=== PATIENT | male | born 1980 | race Caucasian/White ===

== ENCOUNTER 2016-03-23 11:17 | Emergency (ER) | payer MEDICARE, MEDICAID ==
[2016-03-23 12:00] LABS: Hematocrit 45 % (42-52); Hemoglobin 14.8 g/dl (14.0-18.0); Mean Corpuscular HGB Conc 33 g/dl (31-36); Mean Corpuscular Hemoglobin 28 pg (27-31); Mean Corpuscular Volume 84 fL (80-94); Mean Platelet Volume 8 um3 (7.4-10.4); Red Blood Count 5.34 10^6/ul (4.0-5.4); Red Cell Distribution Width 13 % (10.5-15); White Blood Count 7.4 10^3/ul (3.5-10.8)
[2016-03-23 12:02] LABS: Urine Bilirubin Negative (Negative); Urine Glucose 3+(>=500 mg/dL) (Negative); Urine Nitrite Negative (Negative)
[2016-03-23 12:11] LABS: Benzodiazepine Urine Screen None Detected (None Detect)
[2016-03-23 12:12] LABS: ALT 13 U/L (7-52); AST 17 U/L (13-39); Albumin 4.5 g/dL (3.2-5.2); Alkaline Phosphatase 66 U/L (34-104); Anion Gap 6 mmol/L (2-11); BUN/Creatinine Ratio 14.8 (8-20); Blood Urea Nitrogen 13 mg/dL (6-24); CO2 Carbon Dioxide 29 mmol/L (22-32); Calcium 9.8 mg/dL (8.6-10.3); Chloride 98 mmol/L (101-111); Globulin 2.7 g/dL (2-4); Glucose 246 mg/dL (70-100); Sodium 133 mmol/L (133-145); Total Protein 7.2 g/dL (6.4-8.9)
--- NOTE | 2016-03-23 12:19 | ED ---
Psychiatric Complaint - HPI Summary HPI Summary: Patient presents with depression that has been worsening over the past 3 weeks. He feels he is becoming less and less able to cope with his depression and today while driving he found himself thinking about running his car off the road. Instead, he came to the ED for evaluation because it helped in the past. He has been non-compliant with his medications and is not even sure if they are helping, or the "right medications". He has a counselor he does not feel is helping him either. He is not shower, eating or sleeping well. - History Of Current Complaint Chief Complaint: EDMentalHealth Time Seen by Provider: 03/23/16 11:36 Hx Obtained From: Patient Onset/Duration: Gradual Onset Timing: Constant Severity Initially: Mild Severity Currently: Severe Character: Depressed Aggravating Factor(s): Medication Non-compliance Alleviating Factor(s): Nothing Associated Signs And Symptoms: Positive: Sleep Disturbance, Appetite Change Related History: Positive For: Prior Psychiatric Issues Has Suicidal: Reports: Thoughts - Allergies/Home Medications Allergies/Adverse Reactions: Allergies Allergy/AdvReac Type Severity Reaction Status Date / Time No Known Allergies Allergy Verified 03/23/16 11:25 Home Medications: Home Medications Insulin ASPART (NF) [Novolog (NF)] 0 - 100 units SUBCUT DAILY 03/23/16 [History Confirmed 03/23/16] Omeprazole CAP* [Prilosec CAP* 20 MG] 40 mg PO DAILY 03/23/16 [History Confirmed 03/23/16] Simvastatin (NF) [Zocor (NF)] 40 mg PO DAILY 03/23/16 [History Confirmed ] hydrOXYzine HCL TAB* [Atarax TAB*] 50 mg PO BID PRN 03/23/16 [History Confirmed 03/23/16] PMH/Surg Hx/FS Hx/Imm Hx Endocrine/Hematology History: Reports: Hx Diabetes - Type I Denies: Hx Anticoagulant Therapy, Hx Thyroid Disease Cardiovascular History: Reports: Hx Hypercholesterolemia Denies: Hx Congestive Heart Failure, Hx Deep Vein Thrombosis, Hx Hypertension , Hx Myocardial Infarction, Hx Pacemaker/ICD Respiratory History: Denies: Hx Asthma, Hx Chronic Obstructive Pulmonary Disease (COPD), Hx Lung Cancer, Hx Pneumonia, Hx Pulmonary Embolism GI History: Denies: Hx Gall Bladder Disease, Hx Gastrointestinal Bleed, Hx Ulcer, Hx Urosepsis History: Denies: Hx Kidney Stones, Hx Renal Disease Sensory History: Denies: Hx Contacts or Glasses Opthamlomology History: Denies: Hx Contacts or Glasses Neurological History: Denies: Hx Dementia, Hx Migraine, Hx Seizures, Hx Transient Ischemic Attacks (TIA) Psychiatric History: Reports: Hx Anxiety, Hx Depression, Hx Bipolar Disorder Denies: Hx Eating Disorder, Hx Schizophrenia, Hx of Violent Episodes Against Others Infectious Disease History: No Infectious Disease History: Denies: Hx Hepatitis, Hx Human Immunodeficiency Virus (HIV), Traveled Outside the [place] in Last 30 Days - Family History Known Family History: Positive: Unknown, Diabetes - Social History Occupation: Employed Full-time Lives: Alone Alcohol Use: None 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 Substance Use Type: Reports: Excessive Caffeine Smoking Status (MU): Heavy Every Day Tobacco Smoker Type: Cigarettes Amount Used/How Often: 1 ppd Length of Time of Smoking/Using Tobacco: 17 years Cessation Counseling: Patient Advised to Stop Review of Systems Positive: Depressed All Other Systems Reviewed And Are Negative: Yes Physical Exam Triage Information Reviewed: Yes Vital Signs On Initial Exam: Initial Vitals Temp Pulse Resp BP Pulse Ox 98.1 F 93 18 117/72 99 03/23/16 11:25 03/23/16 11:25 03/23/16 11:25 03/23/16 11:25 03/23/16 11:25 Vital Signs Reviewed: Yes Appearance: Positive: Well-Appearing - unkempt, No Pain Distress, Well-Nourished Skin: Positive: Warm, Skin Color Reflects Adequate Perfusion, Dry, Soft Head/Face: Positive: Normal Head/Face Inspection Eyes: Positive: EOMI, ROBBY, Conjunctiva Clear ENT: Positive: Hearing grossly normal Neck: Positive: Supple, Nontender, No Lymphadenopathy Respiratory/Lung Sounds: Positive: Clear to Auscultation, Breath Sounds Present Cardiovascular: Positive: RRR Abdomen Description: Positive: Nontender, Soft Bowel Sounds: Positive: Present Musculoskeletal: Positive: Strength/ROM Intact. Negative: Edema Left, Edema Right Neurological: Positive: Sensory/Motor Intact, Alert, Oriented to Person Place, Time, [place] Bundle Intact Distally, Normal Gait Psychiatric: Positive: Depressed - flat affect, but pleasant and cooperative AVPU Assessment: Alert - [place] Coma Scale Coma Scale Total: 15 Diagnostics - Vital Signs Vital Signs Temp Pulse Resp BP Pulse Ox 03/23/16 11:25 98.1 F 93 18 117/72 99 - Laboratory Lab Results: Lab Results 03/23/16 03/23/16 03/23/16 Range/Units 11:45 11:45 11:45 WBC 7.4 (3.5-10.8) 10^3/ul RBC 5.34 (4.0-5.4) 10^6/ul Hgb 14.8 (14.0-18.0) g/dl Hct 45 (42-52) % MCV 84 (80-94) fL MCH 28 (27-31) pg MCHC 33 (31-36) g/dl RDW 13 (10.5-15) % Plt Count 234 (150-450) 10^3/ul MPV 8 (7.4-10.4) um3 Neut % (Auto) 71.0 (38-83) % Lymph % (Auto) 23.1 L (25-47) % [place] % (Auto) 4.7 (1-9) % Eos % (Auto) 0.5 (0-6) % Baso % (Auto) 0.7 (0-2) % Absolute Neuts (auto) 5.3 (1.5-7.7) 10^3/ul Absolute Lymphs (auto) 1.7 (1.0-4.8) 10^3/ul Absolute Monos (auto) 0.3 (0-0.8) 10^3/ul Absolute Eos (auto) 0 (0-0.6) 10^3/ul Absolute Basos (auto) 0 (0-0.2) 10^3/ul Absolute Nucleated RBC 0 10^3/ul Nucleated RBC % 0 Sodium 133 (133-145) mmol/L Potassium 4.0 (3.5-5.0) mmol/L Chloride 98 L (101-111) mmol/L Carbon Dioxide 29 (22-32) mmol/L Anion Gap 6 (2-11) mmol/L BUN 13 (6-24) mg/dL Creatinine 0.88 (0.67-1.17) mg/dL Est GFR ( Amer) 126.0 (>60) Est GFR (Non-Af Amer) 98.0 (>60) BUN/Creatinine Ratio 14.8 (8-20) Glucose 246 H (70-100) mg/dL Calcium 9.8 (8.6-10.3) mg/dL Total Bilirubin 0.50 (0.2-1.0) mg/dL AST 17 (13-39) U/L ALT 13 (7-52) U/L Alkaline Phosphatase 66 (34-104) U/L Total Protein 7.2 (6.4-8.9) g/dL Albumin 4.5 (3.2-5.2) g/dL Globulin 2.7 (2-4) g/dL Albumin/Globulin Ratio 1.7 (1-3) TSH Pending Urine Color Straw Urine Appearance Clear Urine pH 7.0 (5-9) Ur Specific [place] 1.006 L (1.010-1.030) Urine Protein Negative (Negative) Urine Ketones Negative (Negative) Urine Blood Negative (Negative) Urine Nitrate Negative (Negative) Urine Bilirubin Negative (Negative) Urine Urobilinogen Negative (Negative) Ur Leukocyte Esterase Negative (Negative) Urine Glucose 3+(>=500 mg/dl) H (Negative) Urine Ascorbic Acid * H (Negative) Salicylates Pending Urine Opiates Screen (None Detect) Acetaminophen Pending Ur Barbiturates Screen (None Detect) Ur Phencyclidine Scrn (None Detect) Ur Amphetamines Screen (None Detect) U Benzodiazepines Scrn (None Detect) Urine Cocaine Screen (None Detect) U Cannabinoids Screen (None Detect) Serum Alcohol Pending 03/23/16 Range/Units 11:45 WBC (3.5-10.8) 10^3/ul RBC (4.0-5.4) 10^6/ul Hgb (14.0-18.0) g/dl Hct (42-52) % MCV (80-94) fL MCH (27-31) pg MCHC (31-36) g/dl RDW (10.5-15) % Plt Count (150-450) 10^3/ul MPV (7.4-10.4) um3 Neut % (Auto) (38-83) % Lymph % (Auto) (25-47) % [place] % (Auto) (1-9) % Eos % (Auto) (0-6) % Baso % (Auto) (0-2) % Absolute Neuts (auto) (1.5-7.7) 10^3/ul Absolute Lymphs (auto) (1.0-4.8) 10^3/ul Absolute Monos (auto) (0-0.8) 10^3/ul Absolute Eos (auto) (0-0.6) 10^3/ul Absolute Basos (auto) (0-0.2) 10^3/ul Absolute Nucleated RBC 10^3/ul Nucleated RBC % Sodium (133-145) mmol/L Potassium (3.5-5.0) mmol/L Chloride (101-111) mmol/L Carbon Dioxide (22-32) mmol/L Anion Gap (2-11) mmol/L BUN (6-24) mg/dL Creatinine (0.67-1.17) mg/dL Est GFR ( Amer) (>60) Est GFR (Non-Af Amer) (>60) BUN/Creatinine Ratio (8-20) Glucose (70-100) mg/dL Calcium (8.6-10.3) mg/dL Total Bilirubin (0.2-1.0) mg/dL AST (13-39) U/L ALT (7-52) U/L Alkaline Phosphatase (34-104) U/L Total Protein (6.4-8.9) g/dL Albumin (3.2-5.2) g/dL Globulin (2-4) g/dL Albumin/Globulin Ratio (1-3) TSH Urine Color Urine Appearance Urine pH (5-9) Ur Specific [place] (1.010-1.030) Urine Protein (Negative) Urine Ketones (Negative) Urine Blood (Negative) Urine Nitrate (Negative) Urine Bilirubin (Negative) Urine Urobilinogen (Negative) Ur Leukocyte Esterase (Negative) Urine Glucose (Negative) Urine Ascorbic Acid (Negative) Salicylates Urine Opiates Screen None detected (None Detect) Acetaminophen Ur Barbiturates Screen None detected (None Detect) Ur Phencyclidine Scrn None detected (None Detect) Ur Amphetamines Screen None detected (None Detect) U Benzodiazepines Scrn None detected (None Detect) Urine Cocaine Screen None detected (None Detect) U Cannabinoids Screen None detected (None Detect) Serum Alcohol Result Diagrams: 03/23/16 11:45 03/23/16 11:45 Lab Statement: Any lab studies that have been ordered have been reviewed, and results considered in the medical decision making process. Course/Dx - Differential Dx/Clinical Impression Differential Diagnosis/HQI/PQRI: Positive: Acute Psychosis, Anxiety, Bipolar Disorder, Depression, Schizophrenia, Suicidal Ideation Provider Diagnosis: Persistent mood [affective] disorder, unspecified - Physician Notifications Patient Is Medically Stable For: Psych Evaluation Discharge - Discharge Plan Condition: Stable Disposition: TRANS HIGHER LVL OF CARE FAC Referrals: Hetal Newby MD [Primary Care Provider] -
[2016-03-23 12:36] LABS: Acetaminophen < 15 mcg/mL; Alcohol < 10 mg/dL (<10); Salicylate < 2.50 mg/dL (<30)
[2016-03-23] MEDS ORDERED: Lisinopril TAB* 10 MG PO ONE (12:48)
[2016-03-23] MEDS ORDERED: metFORMIN* 500 MG TAB PO ONE (12:48)
[2016-03-23] MEDS ORDERED: ARIPiprazole TAB* 5 MG PO ONE (12:48)
[2016-03-23] MEDS ORDERED: Omeprazole CAP* 20 MG PO ONE (12:48)
[2016-03-23] MEDS ORDERED: hydrOXYzine HCL TAB* 50 MG PO ONE (12:48)
[2016-03-23] MEDS ORDERED: lamoTRIgine TAB(*) 100 MG PO ONE (12:48)
[2016-03-23] MEDS ORDERED: Escitalopram (NF) 10 MG TAB PO ONE (12:48)
[2016-03-23] MEDS ORDERED: Simvastatin TAB(NF) 20 MG TAB PO SCH (13:00)
[2016-03-23] MEDS ORDERED: Insulin LISPRO* 1 UNITS UNIT SUBCUT ONE (13:08)
[2016-03-23] MEDS ORDERED: Insulin LISPRO* 1 UNITS UNIT SUBCUT PRN (13:10)
[2016-03-23] MEDS ORDERED: hydrOXYzine HCL TAB* 50 MG PO PRN (13:20)
[2016-03-23] MEDS ORDERED: Insulin ASPART (NF) 1 UNIT SUBCUT SCH (14:00)
[2016-03-23] MEDS ORDERED: Lisinopril TAB* 10 MG PO SCH (14:00)
[2016-03-23] MEDS ORDERED: metFORMIN* 1,000 MG TAB PO SCH (14:00)
[2016-03-23] MEDS ORDERED: Atorvastatin* 20 MG TAB PO SCH (14:00)
[2016-03-23] MEDS ORDERED: Citalopram TAB* 10 MG PO SCH (14:00)
[2016-03-23] MEDS ORDERED: Omeprazole CAP* 20 MG PO SCH (14:00)
[2016-03-23] MEDS ORDERED: ARIPiprazole TAB* 20 MG PO SCH (14:00)
[2016-03-23 15:29] VITALS: BP 112/63
[2016-03-23] MEDS ORDERED: lamoTRIgine TAB(*) 100 MG PO SCH (21:00)
[2016-03-24] MEDS ORDERED: Atorvastatin* 20 MG TAB PO SCH (08:35)
[2016-03-24 11:49] LABS: Syphilis Index < 0.1 Index
== END 2016-03-24 09:55 | disposition short-term general hospital (02) ==
LOC: ED 11:17
DX: F34.9 Persistent mood [affective] disorder, unspecified (principal); E10.9 Type 1 diabetes mellitus without complications; E78.00 Pure hypercholesterolemia, unspecified; F17.210 Nicotine dependence, cigarettes, uncomplicated
CPT/HCPCS: 36415; 80053; 80307; 80320; 80329; 81003; 84443; 85025; 86592; 93005; 99285; A9270-GY; G0480

== ENCOUNTER 2016-08-05 11:59 | Inpatient (IN) | payer MEDICARE, MEDICAID ==
[2016-08-05 12:49] LABS: Hematocrit 44 % (42-52); Hemoglobin 14.7 g/dl (14.0-18.0); Mean Corpuscular HGB Conc 33 g/dl (31-36); Mean Corpuscular Hemoglobin 27 pg (27-31); Mean Corpuscular Volume 83 fL (80-94); Mean Platelet Volume 8 um3 (7.4-10.4); Red Blood Count 5.35 10^6/ul (4.0-5.4); Red Cell Distribution Width 13 % (10.5-15); White Blood Count 7.8 10^3/ul (3.5-10.8)
[2016-08-05 12:54] LABS: Urine Bilirubin Negative (Negative); Urine Glucose Negative (Negative); Urine Nitrite Negative (Negative)
--- NOTE | 2016-08-05 12:55 | ED ---
Psychiatric Complaint - HPI Summary HPI Summary: 36M presents with suicidal ideation for a week. He states multiple ways will kill himself such as stepping out in traffic, burn self. He worried that will leave him here on his own and move to [place] without him. He denies any HI. He denies any drug or ETOH use. He has a family history of depression. He states his anxiety is contributing to his depression and has been getting worst over the past couple months. He is a type 1 DM and is on an insulin pump. - History Of Current Complaint Chief Complaint: EDMentalHealth Time Seen by Provider: 08/05/16 12:15 - Allergies/Home Medications Allergies/Adverse Reactions: Allergies Allergy/AdvReac Type Severity Reaction Status Date / Time No Known Allergies Allergy Verified 08/05/16 15:41 Home Medications: Home Medications BuPROPion XL* [Bupropion XL*] 300 mg PO DAILY 08/05/16 [History Confirmed ] Escitalopram (NF) [Lexapro 20 mg (NF)] 20 mg PO DAILY 08/05/16 [History Confirmed 08/05/16] Lurasidone (NF) [Latuda (NF)] 40 mg PO DAILY 08/05/16 [History Confirmed ] PMH/Surg Hx/FS Hx/Imm Hx Endocrine/Hematology History: Reports: Hx Diabetes - Type I Denies: Hx Anticoagulant Therapy, Hx Thyroid Disease Cardiovascular History: Reports: Hx Hypercholesterolemia Denies: Hx Congestive Heart Failure, Hx Deep Vein Thrombosis, Hx Hypertension , Hx Myocardial Infarction, Hx Pacemaker/ICD Respiratory History: Denies: Hx Asthma, Hx Chronic Obstructive Pulmonary Disease (COPD), Hx Lung Cancer, Hx Pneumonia, Hx Pulmonary Embolism GI History: Denies: Hx Gall Bladder Disease, Hx Gastrointestinal Bleed, Hx Ulcer, Hx Urosepsis History: Denies: Hx Kidney Stones, Hx Renal Disease Sensory History: Denies: Hx Contacts or Glasses Opthamlomology History: Denies: Hx Contacts or Glasses Neurological History: Denies: Hx Dementia, Hx Migraine, Hx Seizures, Hx Transient Ischemic Attacks (TIA) Psychiatric History: Reports: Hx Anxiety, Hx Depression, Hx Bipolar Disorder Denies: Hx Eating Disorder, Hx Schizophrenia, Hx of Violent Episodes Against Others Infectious Disease History: No Infectious Disease History: Denies: Hx Hepatitis, Hx Human Immunodeficiency Virus (HIV), Traveled Outside the [place] in Last 30 Days - Family History Known Family History: Positive: Unknown, Diabetes - Social History Alcohol Use: None 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 Substance Use Type: Reports: Excessive Caffeine Smoking Status (MU): Heavy Every Day Tobacco Smoker Type: Cigarettes Amount Used/How Often: 1 ppd Length of Time of Smoking/Using Tobacco: 17 years Review of Systems Negative: Fever Negative: Chest Pain Negative: Shortness Of Breath Positive: Anxious, Depressed All Other Systems Reviewed And Are Negative: Yes Physical Exam Triage Information Reviewed: Yes Vital Signs On Initial Exam: Initial Vitals Temp Pulse Resp BP Pulse Ox 98 F 100 17 136/78 98 08/05/16 12:08 08/05/16 12:08 08/05/16 12:08 08/05/16 12:08 08/05/16 12:08 Vital Signs Reviewed: Yes Appearance: Positive: Well-Appearing Skin: Positive: Warm, Dry Head/Face: Positive: Normal Head/Face Inspection Eyes: Positive: Normal, Conjunctiva Clear Respiratory/Lung Sounds: Positive: Clear to Auscultation, Breath Sounds Present Cardiovascular: Positive: Normal, RRR Abdomen Description: Positive: Nontender, Soft Bowel Sounds: Positive: Present - [place] Coma Scale Coma Scale Total: 15 Diagnostics - Vital Signs Vital Signs Temp Pulse Resp BP Pulse Ox 08/05/16 12:45 98.5 F 78 15 130/68 98 08/05/16 12:08 98 F 100 17 136/78 98 - Laboratory Lab Results: Lab Results 08/05/16 08/05/16 Range/Units 12:36 12:36 WBC 7.8 (3.5-10.8) 10^3/ul RBC 5.35 (4.0-5.4) 10^6/ul Hgb 14.7 (14.0-18.0) g/dl Hct 44 (42-52) % MCV 83 (80-94) fL MCH 27 (27-31) pg MCHC 33 (31-36) g/dl RDW 13 (10.5-15) % Plt Count 221 (150-450) 10^3/ul MPV 8 (7.4-10.4) um3 Neut % (Auto) 69.7 (38-83) % Lymph % (Auto) 25.0 (25-47) % [place] % (Auto) 4.4 (1-9) % Eos % (Auto) 0.4 (0-6) % Baso % (Auto) 0.5 (0-2) % Absolute Neuts (auto) 5.4 (1.5-7.7) 10^3/ul Absolute Lymphs (auto) 1.9 (1.0-4.8) 10^3/ul Absolute Monos (auto) 0.3 (0-0.8) 10^3/ul Absolute Eos (auto) 0 (0-0.6) 10^3/ul Absolute Basos (auto) 0 (0-0.2) 10^3/ul Absolute Nucleated RBC 0.01 10^3/ul Nucleated RBC % 0.1 Urine Color Yellow Urine Appearance Clear Urine pH 6.0 (5-9) Ur Specific [place] 1.004 L (1.010-1.030) Urine Protein Negative (Negative) Urine Ketones 1+ H (Negative) Urine Blood Negative (Negative) Urine Nitrate Negative (Negative) Urine Bilirubin Negative (Negative) Urine Urobilinogen Negative (Negative) Ur Leukocyte Esterase Negative (Negative) Urine Glucose Negative (Negative) Result Diagrams: 08/05/16 12:36 08/05/16 12:36 Lab Statement: Any lab studies that have been ordered have been reviewed, and results considered in the medical decision making process. Course/Dx - Course Course Of Treatment: 36M presents with suicidal ideation for a week. He states multiple ways will kill himself such as stepping out in traffic, burn self. He worried that will leave him here on his own and move to [place] without him. He is a type 1 DM and is on an insulin pump. patient wanted to leave but explained due to sucidial ideation needs to have MHE first and would make involuntary if patient refused. He is medically clear for MHE. signed out to Ag[facility] pending MHE - Differential Dx/Clinical Impression Differential Diagnosis/HQI/PQRI: Positive: Anxiety, Depression, Suicidal Ideation Provider Diagnosis: Persistent mood [affective] disorder, unspecified Discharge - Discharge Plan Condition: Guarded Disposition: OTHER Discharge Disposition Comment: signed out to Agatha pending MHE Referrals: Hetal Newby MD [Primary Care Provider] -
[2016-08-05 13:08] LABS: ALT 11 U/L (7-52); AST 14 U/L (13-39); Albumin 4.4 g/dL (3.2-5.2); Alkaline Phosphatase 70 U/L (34-104); Anion Gap 10 mmol/L (2-11); BUN/Creatinine Ratio 8.9 (8-20); Benzodiazepine Urine Screen None Detected (None Detect); Blood Urea Nitrogen 8 mg/dL (6-24); CO2 Carbon Dioxide 25 mmol/L (22-32); Calcium 9.6 mg/dL (8.6-10.3); Chloride 95 mmol/L (101-111); EGFR African American 122.1 (>60); Globulin 2.6 g/dL (2-4); Glucose 135 mg/dL (70-100); Potassium 4.1 mmol/L (3.5-5.0); Sodium 130 mmol/L (133-145)
[2016-08-05 13:39] LABS: Acetaminophen < 15 mcg/mL; Alcohol < 10 mg/dL (<10); Salicylate < 2.50 mg/dL (<30)
[2016-08-05 13:48] LABS: TSH (Thyroid Stimulating Horm) 0.95 mcIU/mL (0.34-5.60)
[2016-08-05] MEDS ORDERED: LORazepam TAB(*) 1 MG PO ONE (14:38)
[2016-08-05] MEDS ORDERED: Al Hydrox/Mg Hydrox/Simet LIQ* 30 ML UDC PO PRN (19:58)
[2016-08-05] MEDS ORDERED: Acetaminophen TAB* 325 MG PO PRN (19:58)
[2016-08-06] MEDS ORDERED: LURASIDONE 40 MG PO SCH (09:00)
[2016-08-06] MEDS: Atorvastatin* 20 MG TAB PO SCH (09:05)
[2016-08-06] MEDS: Citalopram TAB* 40 MG PO SCH (09:05)
[2016-08-06] MEDS: Lisinopril TAB* 10 MG PO SCH (09:05)
[2016-08-06] MEDS: BuPROPion XL* 300 MG TAB.XL PO SCH (09:05)
[2016-08-06] MEDS: Vitamin THERAPEUTIC TAB PO SCH (09:06)
[2016-08-06] MEDS: metFORMIN* 1,000 MG TAB PO SCH (09:07)
[2016-08-06] MEDS: Omeprazole CAP* 20 MG PO SCH (09:07)
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
[2016-08-06] MEDS ORDERED: Mouth Piece, Nicotine* 1 EACH CARTRIDGE INH ONE (16:00)
[2016-08-06] MEDS: Nicotine Inhaler* 10 MG AMP INH PRN (16:03)
[2016-08-07] MEDS: Omeprazole CAP* 20 MG PO SCH ×2 (08:04→08:07)
[2016-08-07] MEDS: metFORMIN* 1,000 MG TAB PO SCH (08:04)
[2016-08-07] MEDS: Atorvastatin* 20 MG TAB PO SCH (08:04)
[2016-08-07] MEDS: Lisinopril TAB* 10 MG PO SCH (08:04)
[2016-08-07] MEDS: Citalopram TAB* 40 MG PO SCH (08:05)
[2016-08-07] MEDS: BuPROPion XL* 300 MG TAB.XL PO SCH (08:05)
[2016-08-07] MEDS: Vitamin THERAPEUTIC TAB PO SCH (08:05)
[2016-08-07 08:46] LABS: BUN/Creatinine Ratio 11.1 (8-20); Calcium 9.6 mg/dL (8.6-10.3); EGFR African American 122.1 (>60)
[2016-08-07] MEDS: Insulin LISPRO* FOR INSULIN PUMP SUBCUT SCH (09:25)
[2016-08-07] MEDS: Nicotine Inhaler* 10 MG AMP INH PRN ×3 (09:29→17:50)
[2016-08-08] MEDS: Lisinopril TAB* 10 MG PO SCH (08:25)
[2016-08-08] MEDS: metFORMIN* 1,000 MG TAB PO SCH (08:25)
[2016-08-08] MEDS: Citalopram TAB* 40 MG PO SCH (08:25)
[2016-08-08] MEDS: Vitamin THERAPEUTIC TAB PO SCH (08:25)
[2016-08-08] MEDS: Omeprazole CAP* 20 MG PO SCH (08:25)
[2016-08-08] MEDS: BuPROPion XL* 150 MG TAB.XL PO SCH (08:25)
[2016-08-08] MEDS: Atorvastatin* 20 MG TAB PO SCH (08:25)
[2016-08-08] MEDS: Nicotine Inhaler* 10 MG AMP INH PRN ×3 (08:28→16:13)
--- NOTE | 2016-08-09 07:09 | PN ---
Subjective - Subjective Service Type: 67184 Hosp care 15 min low complexity - PLEASE TAKE NOTICE THIS IS A LATE ENTRY NOTE, THE PROGRESS NOTE FOR 08/08/2016. Subjective: PLEASE TAKE NOTICE THIS IS A LATE ENTRY NOTE, THE PROGRESS NOTE FOR 08/08/2016. SUBJECTIVE: Patient observed in the milieu, engaged in activities and social, but depressed in affect and manner. Patient reports no noted change in mood since admission. Patient reports ongoing anxiety associated with recent stressors. Patient and his estranged will be movingtogether to [place] with their daughter. He reports concerns with his MH care as [place] the support structure[place]. He is concerned with finding employment when he gets there. He feels safe on the unit and continues to report no SI/HI or AH/VH. Patient requests med modification as Lexapro has had declining efficacy over the recent months and has been associated with daytime sedation. He reports some concern with raising Wellbutrin dose as he has a remote experience of it triggering a manic episode. Patient amenable to a trial on Prozac while maintaining current Wellbutrin dose. Lexapro will be discontinued. Objective - Appearance Appearance: Thin Framed Dysmorphic Features: No Hygiene: Normal Grooming: Fairly Well Kept - Behavior Psychomotor Activities: Normal Exhibits Abnormal Movement: No - Attitude and Relatedness Attitude and Relatedness: Cooperative Eye Contact: Fair - Speech Quality: Unpressured Latencies: Normal Quantity: Appropriate - Mood Patient's Decription of Mood: "depressed" - Affect Observed Affect: Depressed Affect Consistent with: Dysphoria - Thought Process Patient's Thought Process: Coherent Thought Content: No Passive Wish, No Suicidal Planning, No Homicidal Ideation, No Paranoid Ideation - Sensorium Experiencing Hallucinations: No, Sensorium is Clear Type of Hallucinations: Visual: No, Auditory: No, Command: No - Level of Consciousness Level of Consciousness: Alert Orientation: Yes Intact, Yes Orientated to Time, Yes Orientated to Place, Yes Orientated to Person - Impulse Control Impulse Control: Intact - Insight and Judgement Insight and Judgement: Fair - Group Participation Particating in Group Activities: Yes - Medication Management Medication Management Adherence: Yes Assessment - Assessment Merits Inpatient Hospitalization: For Immediate Safety, For Stabilization Inpatient DSM-IV Dx: MDD, R, S w/o PFs Clinical Impression: 36yo male patient presenting with decompensation of depressive symptoms. He reports stressors involving his move to [place] with his extranged . The 2 have reconciled after a period of separation. Patient is concerned with his finding work once he gets to [place]. He has concerns with the process of being set up with [facility] there. Patient also reports his depression is now causing him to miss work currently. He reports no current SI. He requests med modification. Plan - Plan Treatment Plan: Name: DAVID MONTOYA Birthdate: 1980 [id number] 1. Continue admission to [facility] for symptom mx. 2. Will discontinue Lexapro due to reported ineffectiveness and s/e. 3. Patient gives informed consent to start Prozac 30mg po daily for mood / anxiety. 4. Continue Wellbutrin at 150mg po qam for depressive symptoms. 5. Patient interested in help getting connected with services in [place]. 6. Patient to participate in milieu activities and attend group. Continued Medication Management: Different Medication Medications: Current Medications Acetaminophen (Tylenol Tab*) 650 mg PO Q4H PRN PRN Reason: PAIN or TEMP > 101 F Al Hydrox/Mg Hydrox/Simethicone (Maalox Plus*) 30 ml PO Q4H PRN PRN Reason: INDIGESTION Atorvastatin Calcium (Lipitor*) 20 mg PO DAILY [facility] Last Admin: 08/08/16 08:25 Dose: 20 mg Bupropion HCl (Wellbutrin Xl *) 150 mg PO DAILY [facility] Last Admin: 08/08/16 08:25 Dose: 150 mg Fluoxetine HCl (Prozac Cap*) 30 mg PO DAILY [facility] Insulin Human Lispro (Humalog*) 0 units SUBCUT .SEE PROTOCOL [facility] PRN Reason: Protocol Last Admin: 08/07/16 09:25 Dose: 163 units Lisinopril (Prinivil Tab*) 10 mg PO DAILY [facility] Last Admin: 08/08/16 08:25 Dose: 10 mg Metformin HCl (Glucophage*) 1,000 mg PO 0800 [facility] Last Admin: 08/08/16 08:25 Dose: 1,000 mg Multivitamins (Theragran Tab*) 1 tab PO DAILY [facility] Last Admin: 08/08/16 08:25 Dose: 1 tab Nicotine (Nicotine Inhaler*) 10 mg INH Q2H PRN PRN Reason: CRAVINGS Last Admin: 06/26/17 16:13 Dose: 10 mg Omeprazole (Prilosec Cap*) 40 mg PO 0730 [facility] Last Admin: 08/08/16 08:25 Dose: 40 mg - Discharge Plan Discharge Plan: Outpatient Follow Up Outpatient Program: Private Clinician(s)
--- NOTE | 2016-08-09 07:32 | PN ---
Subjective - Subjective Service Type: 28882 Hosp care 15 min low complexity Assessment - Assessment Inpatient DSM-IV Dx: MDD, R, S w/o PFs Clinical Impression: 36yo male patient presenting with decompensation of depressive symptoms. He reports stressors involving his move to [place] with his extranged . The 2 have reconciled after a period of separation. Patient is concerned with his finding work once he gets to [place]. He has concerns with the process of being set up with [facility] there. Patient also reports his depression is now causing him to miss work currently. He reports no current SI. He requests med modification. Plan - Plan Treatment Plan: Name: DAVID MONTOYA Birthdate: 1980 [id number] 1. Continue admission to [facility] for symptom mx. 2. Will discontinue Lexapro due to reported ineffectiveness and s/e. 3. Patient gives informed consent to start Prozac 30mg po daily for mood / anxiety. 4. Continue Wellbutrin at 150mg po qam for depressive symptoms. 5. Patient interested in help getting connected with services in [place]. 6. Patient to participate in milieu activities and attend group. Medications: Current Medications Acetaminophen (Tylenol Tab*) 650 mg PO Q4H PRN PRN Reason: PAIN or TEMP > 101 F Al Hydrox/Mg Hydrox/Simethicone (Maalox Plus*) 30 ml PO Q4H PRN PRN Reason: INDIGESTION Atorvastatin Calcium (Lipitor*) 20 mg PO DAILY [facility] Last Admin: 08/08/16 08:25 Dose: 20 mg Bupropion HCl (Wellbutrin Xl *) 150 mg PO DAILY [facility] Last Admin: 08/08/16 08:25 Dose: 150 mg Fluoxetine HCl (Prozac Cap*) 30 mg PO DAILY [facility] Insulin Human Lispro (Humalog*) 0 units SUBCUT .SEE PROTOCOL [facility] PRN Reason: Protocol Last Admin: 08/07/16 09:25 Dose: 163 units Lisinopril (Prinivil Tab*) 10 mg PO DAILY [facility] Last Admin: 08/08/16 08:25 Dose: 10 mg Metformin HCl (Glucophage*) 1,000 mg PO 0800 [facility] Last Admin: 08/08/16 08:25 Dose: 1,000 mg Multivitamins (Theragran Tab*) 1 tab PO DAILY [facility] Last Admin: 08/08/16 08:25 Dose: 1 tab Nicotine (Nicotine Inhaler*) 10 mg INH Q2H PRN PRN Reason: CRAVINGS Last Admin: 08/08/16 16:13 Dose: 10 mg Omeprazole (Prilosec Cap*) 40 mg PO 0730 [facility] Last Admin: 08/08/16 08:25 Dose: 40 mg
[2016-08-09] MEDS: BuPROPion XL* 150 MG TAB.XL PO SCH (08:45)
[2016-08-09] MEDS: Vitamin THERAPEUTIC TAB PO SCH (08:45)
[2016-08-09] MEDS: metFORMIN* 1,000 MG TAB PO SCH (08:45)
[2016-08-09] MEDS: Lisinopril TAB* 10 MG PO SCH (08:45)
[2016-08-09] MEDS: Atorvastatin* 20 MG TAB PO SCH (08:45)
[2016-08-09] MEDS: Omeprazole CAP* 20 MG PO SCH (08:45)
[2016-08-09] MEDS: FLUoxetine CAP* 10 MG PO SCH (08:46)
[2016-08-09] MEDS: Nicotine Inhaler* 10 MG AMP INH PRN ×3 (08:48→15:45)
--- NOTE | 2016-08-09 12:00 | PN ---
MHU: Group Therapy Note - Service Type Service Type: 12420 Group Psychotherapy - Cognitive Behavioral Group Therapy ( CBT):Patient was attentive and participatory in CBT programming this morning, and remained in good behavioral control. Patient expressed positive insights regarding relevant treatment interventions and goals.
--- NOTE | 2016-08-09 13:09 | PN ---
Subjective - Subjective Service Type: 29360 Hosp care 15 min low complexity Subjective: Patient visible in the milieu. He is cooperative, engaged and social. He is participating in groups. On interview, patient is depressed in affect. He reports an ongoing depressed mood. He reports 7/10 intensity depression on admission. Today he rates the intensity of depression he has at 6/10. Patient reports no issues on Prozac 30mg po daily started yesterday. He reports fair sleep and appetite. He feels safe on the unit and denies SI/HI and AH/VH. Patient reports he will be moving to [place], [place]. He reports the SW has informed him she will be working to get him connected with mental health services there. Patient reports his primary concern he worries with the move is inability to find employment. He reports his has told him she wants him "working immediately". He is concerned he may be kicked out of the home if their is difficulty with finding work. Patient informed this provider would set up a family meeting with he, his , SW and this provider with agenda to discuss this issue and others. He was amenable. Objective - Appearance Appearance: Well Developed/Nourished, Thin Framed Dysmorphic Features: No Hygiene: Normal Grooming: Fairly Well Kept - Behavior Psychomotor Activities: Normal Exhibits Abnormal Movement: Yes - Attitude and Relatedness Attitude and Relatedness: Cooperative Eye Contact: Fair - Speech Quality: Unpressured Latencies: Normal Quantity: Appropriate - Mood Patient's Decription of Mood: "depressed" - Affect Observed Affect: Depressed Affect Consistent with: Dysphoria - Thought Process Patient's Thought Process: Coherent Thought Content: No Passive Wish, No Suicidal Planning, No Homicidal Ideation, No Paranoid Ideation - Sensorium Experiencing Hallucinations: No, Sensorium is Clear Type of Hallucinations: Visual: No, Auditory: No, Command: No - Level of Consciousness Level of Consciousness: Alert Orientation: Yes Intact, Yes Orientated to Time, Yes Orientated to Place, Yes Orientated to Person - Impulse Control Impulse Control: Intact - Insight and Judgement Insight and Judgement: Fair - Group Participation Particating in Group Activities: Yes - Medication Management Medication Management Adherence: Yes Assessment - Assessment Merits Inpatient Hospitalization: For Stabilization Inpatient DSM-IV Dx: MDD, R, S w/o PFs Clinical Impression: 36yo male patient presenting with decompensation of depressive symptoms. He reports stressors involving his move to [place] with his extranged . The 2 have reconciled after a period of separation. Patient is concerned with his finding work once he gets to [place]. He has concerns with the process of being set up with [facility] there. Patient also reports his depression is now causing him to miss work currently. He reports no current SI. He is med compliant and engaged in therapy. Plan - Plan Treatment Plan: Name: DAVID MONTOYA Birthdate: 1980 [id number] 1. Continue admission to [facility] for symptom mx. 2. Lexapro discontinued due to reported ineffectiveness and s/e. 3. Continue Prozac 30mg po daily for mood / anxiety. 4. Continue Wellbutrin at 150mg po qam for depressive symptoms. 5. SW working to get patient connected with mental health services in [place], [place]. 6. Family meeting with patient, his , SW and this provider with agenda to discuss expectations and other concerns with moving back in together with their 6yo as a family. 7. Patient to participate in milieu activities and attend group. Medications: Current Medications Acetaminophen (Tylenol Tab*) 650 mg PO Q4H PRN PRN Reason: PAIN or TEMP > 101 F Al Hydrox/Mg Hydrox/Simethicone (Maalox Plus*) 30 ml PO Q4H PRN PRN Reason: INDIGESTION Atorvastatin Calcium (Lipitor*) 20 mg PO DAILY [facility] Last Admin: 08/09/16 08:45 Dose: 20 mg Bupropion HCl (Wellbutrin Xl *) 150 mg PO DAILY [facility] Last Admin: 08/09/16 08:45 Dose: 150 mg Fluoxetine HCl (Prozac Cap*) 30 mg PO DAILY [facility] Last Admin: 08/09/16 08:46 Dose: 30 mg Insulin Human Lispro (Humalog*) 0 units SUBCUT .SEE PROTOCOL [facility] PRN Reason: Protocol Last Admin: 08/07/16 09:25 Dose: 163 units Lisinopril (Prinivil Tab*) 10 mg PO DAILY [facility] Last Admin: 08/09/16 08:45 Dose: 10 mg Metformin HCl (Glucophage*) 1,000 mg PO 0800 [facility] Last Admin: 08/09/16 08:45 Dose: 1,000 mg Multivitamins (Theragran Tab*) 1 tab PO DAILY [facility] Last Admin: 08/09/16 08:45 Dose: 1 tab Nicotine (Nicotine Inhaler*) 10 mg INH Q2H PRN PRN Reason: CRAVINGS Last Admin: 08/09/16 11:57 Dose: 10 mg Omeprazole (Prilosec Cap*) 40 mg PO 0730 [facility] Last Admin: 08/09/16 08:45 Dose: 40 mg - Discharge Plan Discharge Plan: Outpatient Follow Up Outpatient Program: Private Clinician(s)
[2016-08-10] MEDS: Atorvastatin* 20 MG TAB PO SCH (08:21)
[2016-08-10] MEDS: Vitamin THERAPEUTIC TAB PO SCH (08:22)
[2016-08-10] MEDS: Omeprazole CAP* 20 MG PO SCH (08:22)
[2016-08-10] MEDS: FLUoxetine CAP* 10 MG PO SCH (08:22)
[2016-08-10] MEDS: BuPROPion XL* 150 MG TAB.XL PO SCH (08:22)
[2016-08-10] MEDS: Lisinopril TAB* 10 MG PO SCH (08:22)
[2016-08-10] MEDS: metFORMIN* 1,000 MG TAB PO SCH (08:23)
[2016-08-10] MEDS: Nicotine Inhaler* 10 MG AMP INH PRN ×4 (08:25→18:31)
[2016-08-10 09:34] LABS: BUN/Creatinine Ratio 10.4 (8-20); Calcium 9.4 mg/dL (8.6-10.3); EGFR African American 113.3 (>60); EGFR Non-African American 88.1 (>60); Potassium 4.9 mmol/L (3.5-5.0)
[2016-08-10] MEDS: Insulin LISPRO* FOR INSULIN PUMP SUBCUT SCH (09:36)
[2016-08-10] MEDS ORDERED: FLUoxetine CAP* 10 MG PO ONE (10:07)
--- NOTE | 2016-08-10 11:55 | PN ---
MHU: Group Therapy Note - Service Type Service Type: 17958 Group Psychotherapy - Cognitive Behavioral Group Therapy ( CBT):Patient was attentive and participatory in CBT programming this morning, and remained in good behavioral control. Patient expressed positive insights regarding relevant treatment interventions and goals.
--- NOTE | 2016-08-10 17:44 | PN ---
Subjective - Subjective Service Type: 83689 Hosp care 15 min low complexity Subjective: Patient observed to be social in the milieu, participating in milieu activities and in group. His affect is much lui and responses are quicker. He is spontaneous in speech. Patient's Na+ was noted to be low and repeat BMP was ordered for the morning. Patient expresses concern with the results. Patient informed the Na+ level has been consistent. He was shown a graph of his Na+ levels drawn at [facility] from 2010 up till this morning's. He was educated his Na+ level is low, but its been consistent and is likely a nml baseline. It is not an indication of illness. 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 Patient reports benefit from groups. He has requested access to the computer to do searches for jobs in [place] and pt informed the order was written. Patient reports improved sleep and appetite. He denies med s/e's. He denies SI/HI and AH/VH. Patient requests meeting for discharge planning tomorrow. Objective - Appearance Appearance: Well Developed/Nourished Dysmorphic Features: No Hygiene: Normal Grooming: Fairly Well Kept - Behavior Psychomotor Activities: Normal Exhibits Abnormal Movement: No - Attitude and Relatedness Attitude and Relatedness: Cooperative Eye Contact: Good - Speech Quality: Unpressured Latencies: Normal Quantity: Appropriate - Mood Patient's Decription of Mood: "Good" - Affect Observed Affect: Fair Affect Consistent with: Euthymia - Thought Process Patient's Thought Process: Coherent Thought Content: No Passive Wish, No Suicidal Planning, No Homicidal Ideation, No Paranoid Ideation - Sensorium Experiencing Hallucinations: No, Sensorium is Clear Type of Hallucinations: Visual: No, Auditory: No, Command: No - Level of Consciousness Level of Consciousness: Alert Orientation: Yes Intact, Yes Orientated to Time, Yes Orientated to Place, Yes Orientated to Person - Impulse Control Impulse Control: Intact - Insight and Judgement Insight and Judgement: Fair - Group Participation Particating in Group Activities: Yes - Medication Management Medication Management Adherence: Yes Assessment - Assessment Merits Inpatient Hospitalization: For Immediate Safety, For Stabilization Inpatient DSM-IV Dx: MDD, R, S w/o PFs Clinical Impression: 36yo male patient presenting with decompensation of depressive symptoms. He reports stressors involving his move to [place] with his extranged . The 2 have reconciled after a period of separation. Patient is concerned with his finding work once he gets to [place]. He has concerns with the process of being set up with [facility] [place]. Patient also reports his depression is now causing him to miss work currently. He reports no current SI. He is med compliant and engaged in therapy. Plan - Plan Treatment Plan: Name: DAVID MONTOYA Birthdate: 1980 [id number] 1. Continue admission to [facility] for symptom mx. 2. Lexapro discontinued due to reported ineffectiveness and s/e. 3. Continue Prozac at increased dose 30mg po daily for mood / anxiety. 4. Continue Wellbutrin at 150mg po qam for depressive symptoms. 5. working to get patient connected with mental health services in [place], [place]. 6. Family meeting with patient unable to be scheduled as is out of town. 7. Na+ level repeated and is stable. Patient's Na+ levels graphed from 2010 to now and have been stable. 8. 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 with. 9. Discharge planning tomorrow. 10. Patient to participate in milieu activities and attend group. Continued Medication Management: Different Medication Medications: Current Medications Acetaminophen (Tylenol Tab*) 650 mg PO Q4H PRN PRN Reason: PAIN or TEMP > 101 F Al Hydrox/Mg Hydrox/Simethicone (Maalox Plus*) 30 ml PO Q4H PRN PRN Reason: INDIGESTION Atorvastatin Calcium (Lipitor*) 20 mg PO DAILY [facility] Last Admin: 08/10/16 08:21 Dose: 20 mg Bupropion HCl (Wellbutrin Xl *) 150 mg PO DAILY [facility] Last Admin: 08/10/16 08:22 Dose: 150 mg Fluoxetine HCl (Prozac Cap*) 60 mg PO DAILY [facility] Insulin Human Lispro (Humalog*) 0 units SUBCUT .SEE PROTOCOL [facility] PRN Reason: Protocol Last Admin: 08/10/16 09:36 Dose: 163 units Lisinopril (Prinivil Tab*) 10 mg PO DAILY [facility] Last Admin: 08/10/16 08:22 Dose: 10 mg Metformin HCl (Glucophage*) 1,000 mg PO 0800 [facility] Last Admin: 08/10/16 08:23 Dose: 1,000 mg Multivitamins (Theragran Tab*) 1 tab PO DAILY [facility] Last Admin: 08/10/16 08:22 Dose: 1 tab Nicotine (Nicotine Inhaler*) 10 mg INH Q2H PRN PRN Reason: CRAVINGS Last Admin: 08/10/16 15:00 Dose: 10 mg Omeprazole (Prilosec Cap*) 40 mg PO 0730 [facility] Last Admin: 08/10/16 08:22 Dose: 40 mg - Discharge Plan Discharge Plan: Outpatient Follow Up Outpatient Program: Private Clinician(s)
[2016-08-11] MEDS: Atorvastatin* 20 MG TAB PO SCH (07:35)
[2016-08-11] MEDS: Omeprazole CAP* 20 MG PO SCH (07:35)
[2016-08-11] MEDS: Vitamin THERAPEUTIC TAB PO SCH (07:36)
[2016-08-11] MEDS: metFORMIN* 1,000 MG TAB PO SCH (07:36)
[2016-08-11] MEDS: BuPROPion XL* 150 MG TAB.XL PO SCH (07:36)
[2016-08-11] MEDS: Lisinopril TAB* 10 MG PO SCH (07:36)
[2016-08-11] MEDS: Nicotine Inhaler* 10 MG AMP INH PRN ×2 (07:40→10:59)
[2016-08-11 08:55] VITALS: BP 114/61
[2016-08-11] MEDS ORDERED: FLUoxetine CAP* 20 MG PO SCH (09:00)
--- NOTE | 2016-08-11 11:45 | PN ---
[facility]: Group Therapy Note - Service Type Service Type: [id number] Group Psychotherapy - Cognitive Behavioral Group Therapy ( CBT):Patient was attentive and participatory in CBT programming this morning, and remained in good behavioral control. Patient expressed positive insights regarding relevant treatment interventions and goals.
--- NOTE | 2016-08-11 12:03 | DS ---
Subjective - Subjective Service Types: 82624 Hosp DC Day Mgmt simple under 30 min Subjective: Patient is attending group on my approach. He has been visible in the milieu, social, and engaged in milieu activities. On interview, patient's affect is bright. He reports benefit from this admission. He reports coping mechanisms and exercises on communication with the SW have been beneficial to increase his awareness of the importance of improving communication with his and means to do it. Patient describes his mood as "good" this morning. He requests discharge. He reports having f/u appt set by with Dr. Frankel for this Monday. He has been given referrals to clinics in [place], [place]. Patient reports having no med s/e's. Sleep and appetite are wnl. Patients deny SI/HI. Patient asked to present to his local ED if SI recurs. She was amenable and acknowledged understanding of his family and community supports. Objective - Appearance Appearance: Well Developed/Nourished Dysmorphic Features: No Hygiene: Normal Grooming: Well Kept - Behavior Psychomotor Activities: Normal Exhibits Abnormal Movement: No - Attitude and Relatedness Attitude and Relatedness: Cooperative Eye Contact: Good - Speech Quality: Unpressured Latencies: Normal Quantity: Appropriate - Mood Patient's Decription of Mood: "Good" - Affect Observed Affect: Good Affect Consistent with: Euthymia - Thought Process Patient's Thought Process: Coherent Thought Content: No Passive Wish, No Suicidal Planning, No Homicidal Ideation, No Paranoid Ideation - Sensorium Experiencing Hallucinations: No, Sensorium is Clear Type of Hallucinations: Visual: No, Auditory: No, Command: No - Level of Consciousness Level of Consciousness: Alert Orientation: Yes Intact, Yes Orientated to Time, Yes Orientated to Place, Yes Orientated to Person - Impulse Control Impulse Control: Intact - Insight and Judgement Insight and Judgement: Good - Group Participation Particating in Group Activities: Yes - Medication Management Medication Management Adherence: Yes Treatment Course & Assessment Clinical Course & Impression: HOSPITAL COURSE: 36yo male patient presenting with decompensation of depressive symptoms. He reports stressors involving his move to [place] with his extranged . The 2 have reconciled after a period of separation. Patient is concerned with his finding work once he gets to [place]. He has concerns with the process of being set up with [facility] there. Patient also reports his depression is now causing him to miss work currently. On admission, patient's Latuda was discontinued. Patient switched to Latuda from Abilify after ineffectiveness. Patient declined initiation of another mood stabilizer reporting not wanting another chemical in his body. He also reports his rare episodes of charlie/ hypomania were in the context of substance abuse. He reports home meds of Lexapro 20mg daily, Wellbutrin 300mg po daily, and Latuda. Patient amenable to med modification. Lexapro was discontinued. Patient amenable to start of Prozac 30mg which had been suggested by his admitting psychiatrist. Wellbutrin was decreased to 150mg po daily. Prozac was increased to 60mg po daily with no issue. Patient's mood, affect and energy levels increased each day of admission. On day of discharge patient is future oriented in conversation. He reports he will drive himself home. He reports he will stay with family in [place] for a few days visiting with family there. He reports benefit from groups, understanding isolation triggers drop in mood. He reported benefit from communication exercises given by the to address communication issues with his . He reported his mood as "goo". Patient is psychiatrically stable and future oriented. He requests discharge and is amenable to discharge f/u plan. PERTINENT LABS: Laboratory Tests 08/05/16 08/05/16 08/05/16 12:36 12:36 12:36 WBC 7.8 RBC 5.35 Hgb 14.7 Hct 44 MCV 83 MCH 27 MCHC 33 RDW 13 Plt Count 221 MPV 8 Neut % (Auto) 69.7 Lymph % (Auto) 25.0 Sac % (Auto) 4.4 Eos % (Auto) 0.4 Baso % (Auto) 0.5 Absolute Neuts (auto) 5.4 Absolute Lymphs (auto) 1.9 Absolute Monos (auto) 0.3 Absolute Eos (auto) 0 Absolute Basos (auto) 0 Absolute Nucleated RBC 0.01 Nucleated RBC % 0.1 Sodium 130 L Potassium 4.1 Chloride 95 L Carbon Dioxide 25 Anion Gap 10 BUN 8 Creatinine 0.90 Est GFR ( Amer) 122.1 Est GFR (Non-Af Amer) 95.0 BUN/Creatinine Ratio 8.9 Glucose 135 H POC Glucose (mg/dL) Calcium 9.6 Total Bilirubin 0.60 AST 14 ALT 11 Alkaline Phosphatase 70 Total Protein 7.0 Albumin 4.4 Globulin 2.6 Albumin/Globulin Ratio 1.7 TSH 0.95 Urine Color Yellow Urine Appearance Clear Urine pH 6.0 Ur Specific [place] 1.004 L Urine Protein Negative Urine Ketones 1+ H Urine Blood Negative Urine Nitrate Negative Urine Bilirubin Negative Urine Urobilinogen Negative Ur Leukocyte Esterase Negative Urine Glucose Negative Salicylates < 2.50 Urine Opiates Screen Acetaminophen < 15 Ur Barbiturates Screen Ur Phencyclidine Scrn Ur Amphetamines Screen U Benzodiazepines Scrn Urine Cocaine Screen U Cannabinoids Screen Serum Alcohol < 10 08/05/16 08/05/16 08/06/16 12:36 19:48 07:36 WBC RBC Hgb Hct MCV MCH MCHC RDW Plt Count MPV Neut % (Auto) Lymph % (Auto) Sac % (Auto) Eos % (Auto) Baso % (Auto) Absolute Neuts (auto) Absolute Lymphs (auto) Absolute Monos (auto) Absolute Eos (auto) Absolute Basos (auto) Absolute Nucleated RBC Nucleated RBC % Sodium Potassium Chloride Carbon Dioxide Anion Gap BUN Creatinine Est GFR ( Amer) Est GFR (Non-Af Amer) BUN/Creatinine Ratio Glucose POC Glucose (mg/dL) 215 H 125 H Calcium Total Bilirubin AST ALT Alkaline Phosphatase Total Protein Albumin Globulin Albumin/Globulin Ratio TSH Urine Color Urine Appearance Urine pH Ur Specific [place] Urine Protein Urine Ketones Urine Blood Urine Nitrate Urine Bilirubin Urine Urobilinogen Ur Leukocyte Esterase Urine Glucose Salicylates Urine Opiates Screen None detected Acetaminophen Ur Barbiturates Screen None detected Ur Phencyclidine Scrn None detected Ur Amphetamines Screen None detected U Benzodiazepines Scrn None detected Urine Cocaine Screen None detected U Cannabinoids Screen None detected Serum Alcohol 08/06/16 08/07/16 08/10/16 11:43 08:18 09:04 WBC RBC Hgb Hct MCV MCH MCHC RDW Plt Count MPV Neut % (Auto) Lymph % (Auto) Sac % (Auto) Eos % (Auto) Baso % (Auto) Absolute Neuts (auto) Absolute Lymphs (auto) Absolute Monos (auto) Absolute Eos (auto) Absolute Basos (auto) Absolute Nucleated RBC Nucleated RBC % Sodium 131 L 131 L Potassium 4.0 4.9 Chloride 101 98 L Carbon Dioxide 28 26 Anion Gap 2 7 BUN 10 10 Creatinine 0.90 0.96 Est GFR ( Amer) 122.1 113.3 Est GFR (Non-Af Amer) 95.0 88.1 BUN/Creatinine Ratio 11.1 10.4 Glucose 106 H 317 H POC Glucose (mg/dL) 128 H Calcium 9.6 9.4 Total Bilirubin AST ALT Alkaline Phosphatase Total Protein Albumin Globulin Albumin/Globulin Ratio TSH Urine Color Urine Appearance Urine pH Ur Specific [place] Urine Protein Urine Ketones Urine Blood Urine Nitrate Urine Bilirubin Urine Urobilinogen Ur Leukocyte Esterase Urine Glucose Salicylates Urine Opiates Screen Acetaminophen Ur Barbiturates Screen Ur Phencyclidine Scrn Ur Amphetamines Screen U Benzodiazepines Scrn Urine Cocaine Screen U Cannabinoids Screen Serum Alcohol Discharge Meds: Medication Instructions Recorded Confirmed Type Lisinopril TAB* [Prinivil TAB 10 10 mg PO DAILY 06/13/12 08/05/16 History MG*] metFORMIN* [Glucophage 1000 MG TAB 1,000 mg PO DAILY 01/14/16 08/05/16 History *] Insulin ASPART (NF) [Novolog (NF)] 0 - 100 units SUBCUT DAILY 03/23/16 08/05/16 History Omeprazole CAP* [Prilosec CAP* 20 40 mg PO DAILY 03/23/16 08/05/16 History MG] Simvastatin (NF) [Zocor (NF)] 40 mg PO DAILY 03/23/16 08/05/16 History Bupropion XL* [Wellbutrin XL *] 150 mg PO DAILY #30 tab 08/11/16 Rx FLUoxetine CAP* [Prozac CAP*] 60 mg PO DAILY #90 cap 08/11/16 Rx Consultants: none Follow-Up: 1.Appts for within the next 2 weeks scheduled by for PCP and [facility](psychiatry) . 2.Patient given referrals to clinics in [place], [place]. 3.Patient instructed to discuss Low Na+ levels which are stable [place] [facility] [place] 2010 with his group marketing vp at already scheduled appt. Clear for Discharge: Adequate Clinical Respons, Acceptable Safety Profile Inpatient DSM-IV Dx: MDD, R, S w/o PFs Discharge Planning - Discharge Planning Discharge Plan: Outpatient Follow Up Out[facility] Program: [facility] Recommendations for Continuing Care: Primary Care Followup, Specialty Followup Medications: Current Medications Acetaminophen (Tylenol Tab*) 650 mg PO Q4H PRN PRN Reason: PAIN or TEMP > 101 F Al Hydrox/Mg Hydrox/Simethicone (Maalox Plus*) 30 ml PO Q4H PRN PRN Reason: INDIGESTION Atorvastatin Calcium (Lipitor*) 20 mg PO DAILY [facility] Last Admin: 08/11/16 07:35 Dose: 20 mg Bupropion HCl (Wellbutrin Xl *) 150 mg PO DAILY [facility] Last Admin: 08/11/16 07:36 Dose: 150 mg Fluoxetine HCl (Prozac Cap*) 60 mg PO DAILY [facility] Last Admin: 08/11/16 07:36 Dose: 60 mg Insulin Human Lispro (Humalog*) 0 units SUBCUT .SEE PROTOCOL [facility] PRN Reason: Protocol Last Admin: 08/10/16 09:36 Dose: 163 units Lisinopril (Prinivil Tab*) 10 mg PO DAILY [facility] Last Admin: 08/11/16 07:36 Dose: 10 mg Metformin HCl (Glucophage*) 1,000 mg PO 0800 [facility] Last Admin: 08/11/16 07:36 Dose: 1,000 mg Multivitamins (Theragran Tab*) 1 tab PO DAILY [facility] Last Admin: 08/11/16 07:36 Dose: 1 tab Nicotine (Nicotine Inhaler*) 10 mg INH Q2H PRN PRN Reason: CRAVINGS Last Admin: 08/11/16 10:59 Dose: 10 mg Omeprazole (Prilosec Cap*) 40 mg PO 0730 [facility] Last Admin: 08/11/16 07:35 Dose: 40 mg Discharge Planning: Prescriptions provided for discharge [x] Yes [] No Follow up care details as per social work arrangements. Patient response to discharge plan: [] eager for discharge [x] agreeable with discharge plan [] ambivalent about discharge [] disagrees with discharge today
== END 2016-08-11 13:00 | disposition home or self-care (01) | DRG 885 ==
LOC: ED 11:59 → BSU 19:16
PROVIDERS: ADMIT Psychiatry & Neurology Psychiatry; ATTEND Psychiatry & Neurology Psychiatry
DX: F33.2 Major depressive disorder, recurrent severe without psychotic features (principal); F31.81 Bipolar II disorder; I10 Essential (primary) hypertension; Z81.8 Family history of other mental and behavioral disorders; E11.9 Type 2 diabetes mellitus without complications; Z79.4 Long term (current) use of insulin; E78.5 Hyperlipidemia, unspecified; G40.909 Epilepsy, unspecified, not intractable, without status epilepticus; Z79.84 Long term (current) use of oral hypoglycemic drugs; Z79.899 Other long term (current) drug therapy; F10.21 Alcohol dependence, in remission; F12.21 Cannabis dependence, in remission
CPT/HCPCS: 36415; 80048; 80053; 80061; 80307; 80320; 80329; 81003; 82043; 82248; 82570; 82607; 84443; 85025; 90853; 99222; 99231; 99238; 99406; A9270-GY; G0480